=== PATIENT | female | born 1950 | race Caucasian/White ===

== ENCOUNTER 2024-01-05 18:57 | Inpatient (IN) | payer OTHER ==
[~2024-01-05] VITALS: Ht 162.6 cm; Wt 64.5 kg
[2024-01-05 20:24] VITALS: BP 157/91; PULSE 89; RESP 18; TEMP 98.1; O2SAT 96
[2024-01-05 20:49] VITALS: BP 157/91; PULSE 80; RESP 20; O2SAT 96
[2024-01-05 20:50] VITALS: PULSE 89; RESP 18; O2SAT 96
[2024-01-05] MEDS ORDERED: DOCUSATE SOD 100 MG CAP PO PRN (21:30)
[2024-01-05] MEDS ORDERED: DEXTROSE (50%) 50ML SYRG IV PRN (21:30)
[2024-01-05] MEDS ORDERED: MORPHINE SULFATE INJ 2 MG/ml SYRG IV PRN (21:30)
[2024-01-05] MEDS ORDERED: hydrALAZINE HCL 20 MG/ML VL IV PRN (21:30)
[2024-01-05] MEDS ORDERED: NITROGLYCERIN 0.4 MG SL TAB SL PRN (21:30)
[2024-01-05] MEDS ORDERED: MET50T PO (21:40)
[2024-01-05] MEDS ORDERED: METF-372 PO (21:40)
[2024-01-05] MEDS ORDERED: LISI40TA16 PO (21:40)
[2024-01-05] MEDS ORDERED: ASPI-325 PO (21:40)
[2024-01-05] MEDS ORDERED: CLOP75TA28 PO (21:40)
[2024-01-05] MEDS ORDERED: INSLANTI SC (21:40)
[2024-01-05] MEDS ORDERED: HYDR-4902 PO (21:40)
[2024-01-05] MEDS: SODIUM CHLORIDE 0.9% 1,000 ML IV SCH (21:50)
[2024-01-05] MEDS: HYDROcodone-ACET 5/325MG TAB PO PRN (22:36)
[2024-01-05] MEDS: ATORVASTATIN 20 MG TAB PO SCH (22:37)
[2024-01-05] MEDS: FAMOTIDINE (10MG/ML) 2ML VL IV SCH (22:39)
[2024-01-05] MEDS: ACCU-CHEK COMFORT CURVE STRIP VI SCH (22:42)
[2024-01-05] MEDS: InsuLIN REG 1unit/0.01ml Soln (100units/ml) SC SCH (22:42)
[2024-01-05 22:44] LABS: Basophils # (auto) 0 10 ^3/uL (0-0.2); Basophils % (auto) 0.4 % (0.0-2.0); Eosinophils # (auto) 0.2 10 ^3/uL (0-0.8); Eosinophils % (auto) 2.2 % (0.0-7.0); Hematocrit 35.9 % (36.0-46.0); Hemoglobin 12.2 g/dL (12.2-16.2); Lymphocytes # (auto) 1.9 10 ^3/uL (0.4-5.4); Lymphocytes % (auto) 22.8 % (10.0-50.0); Mean Corpuscular Hgb Conc. 33.8 g/dL (32.0-36.0); Mean Corpuscular Volume 94.5 fL (80.0-100.0); Monocytes % (auto) 11.9 % (0.0-12.0); Neutrophils # (auto) 5.2 10 ^3/uL (1.6-8.6); Neutrophils % (auto) 62.7 % (37.0-80.0); Platelet Count (auto) 252 10^3/uL (140-450); Red Cell Distribution Width 15.8 % (11.8-14.3); White Blood Cell 8.3 10^3/uL (4.4-10.8)
[2024-01-05 23:02] LABS: Alanine Aminotransferase 14 U/L (7-40); Albumin 3.7 g/dL (3.2-4.8); Alkaline Phosphatase 113 U/L (46-116); Anion Gap 6 (5-15); Aspartate Aminotransferase 12 U/L (13-40); BUN/Creatinine Ratio 10.6 (10.0-20.0); Blood Urea Nitrogen 11 mg/dL (9-23); Calcium 9.5 mg/dL (8.7-10.4); Carbon Dioxide 27 mmol/L (20-31); Chloride 107 mmol/L (98-107); Glucose 190 mg/dL (74-106); Potassium 4.1 mmol/L (3.5-5.1); Sodium 140 mmol/L (136-145)
[2024-01-05 23:03] LABS: Bilirubin, Total 0.3 mg/dL (0.2-1.0); Total Protein 6.6 g/dL (5.7-8.2)
[2024-01-06] VITALS (12 sets, daily range): BP systolic 113–155; BP diastolic 72–92; PULSE 77–93; RESP 13–18; TEMP 98–98.6; O2SAT 95–100
[2024-01-06] MEDS: InsuLIN REG 1unit/0.01ml Soln (100units/ml) SC SCH (06:27)
[2024-01-06 07:00] LABS: Urine Bacteria None Seen /hpf (None Seen)
[2024-01-06 07:10] LABS: Urine Blood 2+ /uL (Negative); Urine Budding Yeast FEW /hpf (None Seen); Urine Clarity Clear (Clear); Urine Color Light-Yellow (Yellow); Urine Protein, UAD TRACE (Negative); Urine Specific Gravity 1.013 (1.001-1.035); Urine Urobilinogen Normal (Negative); Urine WBC 33 /hpf (0 - 5); Urine pH 5.5 (5.0-9.0)
[2024-01-06 09:46] LABS: Basophils # (auto) 0 10 ^3/uL (0-0.2); Basophils % (auto) 0.6 % (0.0-2.0); Eosinophils # (auto) 0.2 10 ^3/uL (0-0.8); Eosinophils % (auto) 2.2 % (0.0-7.0); Hematocrit 37.3 % (36.0-46.0); Hemoglobin 12.6 g/dL (12.2-16.2); Lymphocytes # (auto) 2.1 10 ^3/uL (0.4-5.4); Mean Corpuscular Hemoglobin 32.2 pg (28.0-32.0); Mean Corpuscular Hgb Conc. 33.8 g/dL (32.0-36.0); Mean Corpuscular Volume 95.2 fL (80.0-100.0); Monocytes # (auto) 0.9 10 ^3/uL (0-1.3); Neutrophils # (auto) 4.2 10 ^3/uL (1.6-8.6); Neutrophils % (auto) 57.2 % (37.0-80.0); Platelet Count (auto) 269 10^3/uL (140-450); Red Blood Cells 3.92 10^6/uL (4.0-5.20); Red Cell Distribution Width 15.8 % (11.8-14.3); White Blood Cell 7.4 10^3/uL (4.4-10.8)
[2024-01-06 09:55] LABS: Alanine Aminotransferase 15 U/L (7-40); Albumin 3.7 g/dL (3.2-4.8); Alkaline Phosphatase 115 U/L (46-116); Anion Gap 8 (5-15); Aspartate Aminotransferase 15 U/L (13-40); BUN/Creatinine Ratio 12.9 (10.0-20.0); Blood Urea Nitrogen 12 mg/dL (9-23); Calcium 9.5 mg/dL (8.7-10.4); Carbon Dioxide 25 mmol/L (20-31); Chloride 107 mmol/L (98-107); Glucose 166 mg/dL (74-106); Potassium 4.3 mmol/L (3.5-5.1); Sodium 140 mmol/L (136-145)
[2024-01-06 09:58] LABS: Bilirubin, Total 0.4 mg/dL (0.2-1.0); Total Protein 6.4 g/dL (5.7-8.2)
[2024-01-06] MEDS: ASPirin 81 mg TAB PO SCH (10:00)
[2024-01-06 10:12] LABS: Magnesium 1.8 mg/dL (1.6-2.6)
[2024-01-06] MEDS: SODIUM CHLORIDE 0.9% 1,000 ML IV SCH (10:46)
[2024-01-06 11:03] LABS: INR 1.01 (0.9-1.15); Partial Thromboplastin Time 25.8 SEC (24.5-34.5); Prothrombin Time 10.7 sec (9.3-11.8)
[2024-01-06] MEDS ORDERED: IODIXANOL 320MG/ML 100ML BTL IV ONE (12:15)
[2024-01-06] MEDS: ACETAMINOPHEN 325 MG TAB PO PRN (12:20)
[2024-01-06] MEDS ORDERED: ANGIOMAX 250 MG VIAL IV ONE (12:37)
[2024-01-06] MEDS ORDERED: SODIUM CHL 0.9% 0 ML ONE (12:38)
[2024-01-06] MEDS ORDERED: HEPARIN SODIUM (PORCINE) 5000 UNITS/ML 1ML VIAL ONE (12:38)
[2024-01-06] MEDS ORDERED: fentaNYL CITRATE 100 MCG/2 ML VL ONE (12:38)
[2024-01-06] MEDS ORDERED: VERAPAMIL 2.5MG/ML INJ 2ML VIAL IV ONE (12:38)
[2024-01-06] MEDS ORDERED: MIDAZOLAM HCL 2MG/2ML 2ml VIAL (1mg/ml) ONE (12:38)
[2024-01-06] MEDS ORDERED: LIDOCAINE 2%HCL (LOCAL ANESTH.) INJ 20ML MDV ONE (12:38)
[2024-01-06] MEDS: ONDANSETRON HCL 4 MG/2 ML VIAL IV PRN (12:50)
[2024-01-06] MEDS ORDERED: ONDANSETRON HCL 4 MG/2 ML VIAL ONE (12:53)
[2024-01-06] MEDS ORDERED: hydrALAZINE HCL 20 MG/ML VL ONE (13:48)
[2024-01-06] MEDS: MORPHINE SULFATE INJ 2 MG/ml SYRG IV PRN (15:01)
[2024-01-06] MEDS: CARVEDILOL 3.125 MG TAB PO ONE (17:36)
[2024-01-06] MEDS: FUROSEMIDE 20 MG TAB PO ONE (17:38)
[2024-01-06] MEDS: CARVEDILOL 3.125 MG TAB PO SCH (19:44)
[2024-01-06] MEDS: MUPIROCIN 2% OINT 15gm or 22gm FOR MRSA NARES EACHNOSTRI SCH (22:28)
[2024-01-06] MEDS: MELATONIN 5 MG TAB PO SCH (22:33)
[2024-01-07] VITALS (7 sets, daily range): BP systolic 125–152; BP diastolic 69–98; PULSE 68–89; RESP 16–18; TEMP 97.8–98.2; O2SAT 95–100
[2024-01-07] MEDS: SACUBITRIL-VALSARTAN 24mg/26mg TAB PO SCH (09:52)
[2024-01-07] MEDS: CLOPIDOGREL BISULFATE 75 MG TAB PO SCH (09:52)
[2024-01-07] MEDS: EMPAGLIFLOZIN 10 MG TAB PO SCH (09:52)
[2024-01-08 05:00] VITALS: BP 128/88; PULSE 95; RESP 18; TEMP 97.9; O2SAT 100
[2024-01-08 06:38] LABS: Alanine Aminotransferase 12 U/L (7-40); Albumin 3.7 g/dL (3.2-4.8); Alkaline Phosphatase 110 U/L (46-116); Anion Gap 5 (5-15); Aspartate Aminotransferase 16 U/L (13-40); Bilirubin, Total 0.4 mg/dL (0.2-1.0); Blood Urea Nitrogen 18 mg/dL (9-23); Calcium 9.8 mg/dL (8.7-10.4); Carbon Dioxide 26 mmol/L (20-31); Chloride 106 mmol/L (98-107); Glucose 171 mg/dL (74-106); Potassium 4.5 mmol/L (3.5-5.1); Sodium 137 mmol/L (136-145)
[2024-01-08 06:39] LABS: Total Protein 6.7 g/dL (5.7-8.2)
[2024-01-08 08:00] VITALS: PULSE 76; PULSE 88; RESP 16; O2SAT 100
[2024-01-08] MEDS ORDERED: SACU1TAB PO (13:25)
[2024-01-08] MEDS ORDERED: CARV-214 PO (13:25)
[2024-01-08] MEDS ORDERED: EMPA1TAB PO (13:25)
[2024-01-08] MEDS ORDERED: ATOR20TA50 PO (13:25)
== END 2024-01-08 14:00 | disposition home or self-care (01) | DRG 280 ==
LOC: CENTRAL 20:24 → TELE-CENTR 01-06 01:22
PROVIDERS: ADMIT Internal Medicine; ATTEND Family Medicine
PROC: 4A023N7 Measurement of Cardiac Sampling and Pressure, Left Heart, Percutaneous Approach (ICD-10-PCS; principal; 2024-01-06)
PROC: B211YZZ Fluoroscopy of Multiple Coronary Arteries using Other Contrast (ICD-10-PCS; 2024-01-06)
PROC: B215YZZ Fluoroscopy of Left Heart using Other Contrast (ICD-10-PCS; 2024-01-06)
DX: I21.4 Non-ST elevation (NSTEMI) myocardial infarction (principal); G93.41 Metabolic encephalopathy; I50.43 Acute on chronic combined systolic (congestive) and diastolic (congestive) heart failure; I16.9 Hypertensive crisis, unspecified; I69.354 Hemiplegia and hemiparesis following cerebral infarction affecting left non-dominant side; D64.9 Anemia, unspecified; E11.9 Type 2 diabetes mellitus without complications; E78.5 Hyperlipidemia, unspecified; I11.0 Hypertensive heart disease with heart failure; I25.10 Atherosclerotic heart disease of native coronary artery without angina pectoris; I27.20 Pulmonary hypertension, unspecified; I47.9 Paroxysmal tachycardia, unspecified; I25.5 Ischemic cardiomyopathy; F03.90 Unspecified dementia, unspecified severity, without behavioral disturbance, psychotic disturbance, mood disturbance, and anxiety; Z79.82 Long term (current) use of aspirin; Z79.4 Long term (current) use of insulin; Z79.02 Long term (current) use of antithrombotics/antiplatelets; Z79.84 Long term (current) use of oral hypoglycemic drugs; Z83.3 Family history of diabetes mellitus; Z80.3 Family history of malignant neoplasm of breast
CPT/HCPCS: 36415; 71045; 80053; 80061; 81001; 82962; 83036; 83735; 83880; 84443; 84484; 85025; 85610; 85730; 86850; 86900; 86901; 87081; 87086; 93458; 99152; G0378; J1815; J2250; J2405; J3490; Q9967

== ENCOUNTER 2024-04-16 14:42 | Inpatient (IN) | payer OTHER ==
[~2024-04-16] VITALS: Ht 163.8 cm; Wt 59.1 kg
[~2024-04-16 14:42] MED LIST: AMIO200T33 PO; ASPI-325 PO; ATOR20TA50 PO; CIPR500T4 PO; CLOP75TA28 PO; DOCU-94 PO; EMPA1TAB PO; HYDR-4902 PO; HYDR50TA69 PO; INSLANTI SC; LISI40TA16 PO; MET50T PO; METF-929 PO; OXYC325T14 PO; PIO30T PO; ROSU20TA14 PO; SACU1TAB PO
--- NOTE | 2024-04-16 14:51 | ED.PDOC ---
HPI Comments 73 y.o female with PMHx of AFIB, DM, HTN, Dementia, CVA with left sided deficits, hyperlipidemia, liver disease, and skin cancer, presents to the ED for a chief complaint of chest pain associated with a productive cough, yellow phlegm, SOB, headaches, fever and body aches that started one week ago. Patient reports chest pain is localized to the left side, reproducible on palpation and has no modifying factors. Patient denies any nausea, vomiting, diarrhea, chills, leg swelling or back pain. Time Seen by MD: 14:37 Primary Care Provider: unknown Reviewed Notes: Nurses Notes, Freelance Data Entry Notes, Medications, Allergies Allergies: Coded Allergies: NO KNOWN ALLERGIES (Unverified , 01/05/24) Home Meds Active Scripts Docusate Sodium (Colace) 100 Mg Cap, 1 CAP PO BID, #30 CAP Prov:LUZ NAVA MD 03/04/24 Amiodarone Hcl (Amiodarone Hcl) 200 Mg Tab, 200 MG PO BID, #60 TAB Prov:LUZ NAVA MD 03/02/24 Sacubitril-Valsartan (Entresto 24-26 mg) 1 Tab Tab, 1 TAB PO BID for 30 Days, #60 TAB 3 Refills Prov:HETAL CASILLAS DO 01/08/24 Empagliflozin (Jardiance) 10 Mg Tab, 10 MG PO DAILY for 30 Days, #30 TAB 3 Refills Prov:HETAL CASILLAS DO 01/08/24 Atorvastatin Calcium (ATORVASTATIN CALCIUM) 20 Mg Tab, 20 MG PO HS for 30 Days, #30 TAB 3 Refills Prov:HETAL CASILLAS DO 01/08/24 Reported Medications Rosuvastatin Calcium (Crestor) 20 Mg Tab, 1 TAB PO DAILY for 90 Days, #90 02/28/24 Pioglitazone Hydrochloride (ACTOS TABLET) 30 Mg Tb, 1 TAB PO DAILY for 90 Days 02/28/24 Oxycodone W/ Acetaminophen (Apap/Oxycodone) 1 Tab Tab, 1 TAB PO Q8HR PRN for PAIN for 30 Days, #90 [5/325 MG] 02/28/24 Hydroxyzine Hcl (Hydroxyzine Hcl) 50 Mg Tab, 1 TAB PO DAILY PRN for 30 Days, #30 02/28/24 Ciprofloxacin Hcl (Ciprofloxacin Hcl) 500 Mg Tab, 1 TAB PO Q12HR for UTI for 7 Days, #14 02/28/24 Metformin HCl (Metformin Hydrochloride) 1,000 Mg Tab, 1 TAB PO BID for 90 Days, #180 02/28/24 Metoprolol Tartrate (LOPRESSOR TABLET) 50 Mg Tb, 1 TAB PO BID, #60 TAB 5 Refills 02/28/24 Clopidogrel Bisulfate (Plavix) 75 Mg Tab, 1 TAB PO DAILY, #90 TAB 1 Refill 01/05/24 Lisinopril (Lisinopril) 40 Mg Tab, 1 TAB PO DAILY 01/05/24 Metoprolol Tartrate (LOPRESSOR TABLET) 50 Mg Tb, 1 TAB PO DAILY 01/05/24 Insulin Glargine (Lantus) 100 Unit/Ml Inj, 20 UNIT SC HS 01/05/24 Hydrocodone-Acetaminophen (Hydrocodone Bitartrate/AC 5-325 mg) 1 Tab Tab, 1 TAB PO Q4HPRN PRN for PAIN SCALE 7 THRU 10, TAB 01/05/24 Aspirin (Aspirin Low Dose) 81 Mg Tab, 1 TAB PO DAILY 01/05/24 Information Source: Patient, Emergency Med Personnel Mode of Arrival: EMS Severity: Moderate Timing: Weeks (1) Duration: Since onset Location: Substernal Radiation: No Radiation Quality: Aching Onset: At Rest Cardiac Risk Factors: Hyperlipidemia, HTN, Diabetes PE Risk Factors: None History of: None Modifying Factors: Nothing Associated Signs and Symptoms: SOB Past Medical History PAST MEDICAL HISTORY: AFIB, Cancer, CVA, Dementia, DM, High Lipids, HTN, Liver Surgical History (Other): left hip replacement 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 History Family History Family History: Reviewed,noncontributory to illness Social History Smoker: Non-Smoker Alcohol: Denies ETOH Use Drugs: Denies Drug Use Lives In: Home Constitutional: reports: fever; denies: chills, diaphoresis, fatigue, malaise, sweats, weakness, others EENTM: denies: blurred vision, double vision, ear bleeding, ear discharge, ear drainage, ear pain, ear ringing, eye pain, eye redness, hearing loss, mouth pain, mouth swelling, nasal discharge, nose bleeding, nose congestion, nose pain, photophobia, tearing, throat pain, throat swelling, voice changes, others Respiratory: reports: cough, SOB at rest, shortness of breath, SOB with excertion; denies: hemoptysis, orthopnea, stridor, wheezing, others Cardiovascular: reports: chest pain; denies: dizzy spells, diaphoresis, Dyspnea on exertion, edema, irregular heart beat, left arm pain, lightheadedness, palpitations, PND, syncope, others Gastrointestinal: denies: abdomen distended, abdominal pain, blood streaked bowels, constipated, diarrhea, dysphagia, difficulty swallowing, hematemesis, melena, nausea, poor appetite, poor fluid intake, rectal bleeding, rectal pain, vomiting, others Genitourinary: denies: abnormal vagina bleeding, burning, dyspareunia, dysuria, flank pain, frequency, hematuria, incontinence, pain, , vagina discharge, urgency, others Neurological: reports: headache; denies: dizziness, fainting, left sided numbness, left sided weakness, numbness, paresthesia, pre-existing deficit, right sided numbness, right sided weakness, seizure, speech problems, tingling, tremors, weakness, others Musculoskeletal: denies: back pain, gout, joint pain, joint swelling, muscle pain, muscle stiffness, neck pain, others Integumetry: denies: bruises, change in color, change in hair/nails, dryness, laceration, lesions, lumps, rash, wounds, others Allergic/Immunocompromised: denies: Difficulty Healing, Frequent Infections, Hives, Itching, others Hematologic/Lymphatic: denies: anemia, blood clots, easy bleeding, easy bruising, swollen glands, others Endocrine: denies: excessive hunger, excessive sweating, excessive thirst, excessive urination, flushing, intolerance to cold, intolerance to heat, unexplained weight gain, unexplained weight loss, others Psychiatric: denies: anxiety, bipolar disorder, depression, hopeless, panic disorder, schizophrenia, sleepless, suicidal, others All Other Systems: Reviewed and Negative Physical Exam General Appearance: Moderate Distress HEENT: Normal ENT Inspection, Pharynx Normal, TMs Normal Neck: Full Range of Motion, Non-Tender, Normal, Normal Inspection Respiratory: Chest Non-Tender, Lungs Clear, No Accessory Muscle Use, No Respiratory Distress, Normal Breath Sounds Cardiovascular: No Edema, No JVD, No Murmur, No Gallop, Normal Peripheral Pulses, Regular Rate/Rhythm Breast Exam: Deferred Gastrointestinal: No Organomegaly, Non Tender, No Pulsatile Mass, Normal Bowel Sounds, Soft Genitalia: Deferred Pelvic: Deferred Rectal: Deferred Extremities: No calf tenderness, Normal capillary refill, Normal inspection, Normal range of motion, Non-tender, No pedal edema Musculoskeletal : Apperance: Normal Neurologic: Alert, communications lead II-XII nml as Tested, Motor Weakness, Normal Affect, Normal Mood, No Sensory Deficits Cerebellar Function: Normal Reflexes: Normal Skin: Dry, Normal Color, Warm Lymphatic: No Adenopathy EKG EKG : Pulse Rate (adult): 92 Block: RBBB Hypertrophy: LAE Was a procedure done? Was a procedure done?: No CP Differential Dx Differential Diagnosis: N/A Differential Diagnosis: Angina, Chest Wall Pain, Costochondritis, Myocardial Infarction, Pericarditis, Pneumonia, Pneumothorax, Pulmonary Embolus X-Ray, Labs, Meds, VS Vital Signs Date Time Temp Pulse Resp B/P (MAP) Pulse Ox O2 Delivery O2 Flow Rate FiO2 04/16/24 15:01 92 04/16/24 14:51 92 04/16/24 14:42 96.8 94 18 181/84 (116) 98 Lab Test 04/16/24 16:04 Range/Units White Blood Count 10.4 4.4-10.8 10^3/uL Red Blood Count 4.88 4.0-5.20 10^6/uL Hemoglobin 14.5 12.2-16.2 g/dL Hematocrit 43.6 36.0-46.0 % Mean Corpuscular Volume 89.4 80.0-100.0 fL Mean Corpuscular Hemoglobin 29.8 28.0-32.0 pg Mean Corpuscular Hemoglobin Concent 33.3 32.0-36.0 g/dL Red Cell Distribution Width 13.9 11.8-14.3 % Platelet Count 259 140-450 10^3/uL Mean Platelet Volume 7.6 6.9-10.8 fL Neutrophils (%) (Auto) 81.8 H 37.0-80.0 % Lymphocytes (%) (Auto) 12.3 10.0-50.0 % Monocytes (%) (Auto) 5.4 0.0-12.0 % Eosinophils (%) (Auto) 0.1 0.0-7.0 % Basophils (%) (Auto) 0.4 0.0-2.0 % Neutrophils # (Auto) 8.5 1.6-8.6 10 ^3/uL Lymphocytes # (Auto) 1.3 0.4-5.4 10 ^3/uL Monocytes # (Auto) 0.6 0-1.3 10 ^3/uL Eosinophils # (Auto) 0 0-0.8 10 ^3/uL Basophils # (Auto) 0 0-0.2 10 ^3/uL Nucleated Red Blood Cells 0.0 % Sodium Level 137 136-145 mmol/L Potassium Level 4.4 3.5-5.1 mmol/L Chloride Level 103 98-107 mmol/L Carbon Dioxide Level 21 20-31 mmol/L Anion Gap 13 5-15 Blood Urea Nitrogen 14 9-23 mg/dL Creatinine 0.96 0.550-1.02 mg/dL Glomerular Filtration Rate Calc 62 >90 mL/min BUN/Creatinine Ratio 14.6 10.0-20.0 Serum Glucose 324 H 74-106 mg/dL Calcium Level 10.3 8.7-10.4 mg/dL Troponin I High Sensitivity 12 </=34 ng/L B-Type Natriuretic Peptide 163.14 0-100 pg/mL Current Medications Medications (Trade) Dose Ordered Sig/Félix Route Start Time Stop Time Status Last Admin Aspirin 162 mg ONCE ONCE PO 04/16/24 14:45 04/16/24 14:49 DC 04/16/24 15:16 AP portable chest IMPRESSION: 1. No acute cardiopulmonary pathology The patient's CBC and chemistry panel are within normal limits The BNP is 163.14 The patient was given aspirin 162 mg by mouth here in the emergency department's At this time, the patient was being admitted to the hospitalist The patient understands and agrees with the management. The 1st troponin level came back and is within normal limits. Images Reviewed?: Images reviewed and evaluated by me Time of 1ST Reevaluation: 14:47 Reevaluation 1ST: Unchanged Patient Education/Counseling: Diagnosis, Treatment, Prognosis Family Education/Counseling: No Family Present Departure 1 Departure Time of Disposition: 16:54 Impression: Primary Impression: Acute chest pain Additional Impression: Acute myocardial ischemia Disposition: ADMITTED INPATIENT Admit to: [facility] Condition: Fair Critical Care Note Critical Care Time?: No Stability Stability form required: Yes Unstable for transfer: Telemetry monitoring (Telemetry monitoring required), ED Physician Assesment (Clinical assesment) Heart Score Heart Score: Heart Score Response (Comments) Value History Moderate Suspicious 1 EKG Repolarization Disturb 1 Age >65 2 Risk Factors >3 or Hx ASHD 2 Troponin Normal limit 0 Total 6 I personally scribed for TELLO ANDRADE MD (DVPASLE) on 04/16/24 at 14:51. Electronically submitted by Kandi Austin ([facility]). I personally scribed for TELLO ANDRADE MD (DVPASLE) on 04/16/24 at 16:10. Electronically submitted by Kandi Austin ([facility]). TELLO ANDRADE MD Apr 16, 2024 14:51
--- NOTE | 2024-04-16 14:51 | ECG ---
[facility] Test Date: 2024-04-16 Test Time: 14:41:17 Pat Name: IVAN CREWS Department: ER Room: [address] [place] [address] Gender: F [employer] Subcontractor: GP : 1950 Requested By: TELLO ANDRADE Order Number: [id number] Reading MD: Jonn Calixto Measurements Intervals Rescue Rate: 92 P: 34 OK: 181 QRS: -52 QRSD: 126 T: 1 QT: 392 QTc: 485 Interpretive Statements Sinus rhythm Multiform ventricular premature complexes Probable left atrial enlargement RBBB and LAFB Electronically Signed On 04-17-2024 18:26:18 PST by Jonn Calixto Please click the below link to view image of tracing.
--- NOTE | 2024-04-16 15:07 | DVH ---
AP portable chest HISTORY: cp Comparison: XY CHEST PORTABLE on DOS: 02/26/24, XY CHEST PORTABLE on DOS: 01/06/24 FINDINGS: Left ventricular configuration to the heart. Aorta is tortuous. No infiltrates or effusion s. IMPRESSION: 1. No acute cardiopulmonary pathology
[2024-04-16] MEDS: ASPirin 81 mg TAB PO ONE (15:16)
[2024-04-16 16:18] LABS: Basophils # (auto) 0 10 ^3/uL (0-0.2); Basophils % (auto) 0.4 % (0.0-2.0); Eosinophils # (auto) 0 10 ^3/uL (0-0.8); Eosinophils % (auto) 0.1 % (0.0-7.0); Hematocrit 43.6 % (36.0-46.0); Hemoglobin 14.5 g/dL (12.2-16.2); Lymphocytes # (auto) 1.3 10 ^3/uL (0.4-5.4); Lymphocytes % (auto) 12.3 % (10.0-50.0); Mean Corpuscular Hemoglobin 29.8 pg (28.0-32.0); Mean Corpuscular Hgb Conc. 33.3 g/dL (32.0-36.0); Mean Corpuscular Volume 89.4 fL (80.0-100.0); Monocytes # (auto) 0.6 10 ^3/uL (0-1.3); Monocytes % (auto) 5.4 % (0.0-12.0); Neutrophils # (auto) 8.5 10 ^3/uL (1.6-8.6); Neutrophils % (auto) 81.8 % (37.0-80.0); Platelet Count (auto) 259 10^3/uL (140-450); Red Blood Cells 4.88 10^6/uL (4.0-5.20); Red Cell Distribution Width 13.9 % (11.8-14.3); White Blood Cell 10.4 10^3/uL (4.4-10.8)
[2024-04-16 16:31] LABS: Chloride 103 mmol/L (98-107); Potassium 4.4 mmol/L (3.5-5.1); Sodium 137 mmol/L (136-145)
[2024-04-16 16:32] LABS: Anion Gap 13 (5-15); Calcium 10.3 mg/dL (8.7-10.4); Carbon Dioxide 21 mmol/L (20-31)
[2024-04-16 16:38] LABS: BUN/Creatinine Ratio 14.6 (10.0-20.0); Blood Urea Nitrogen 14 mg/dL (9-23)
[2024-04-16 16:43] LABS: Glucose 324 mg/dL (74-106)
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
--- NOTE | 2024-04-16 22:17 | DVH ---
EXAM: CT HEAD WITHOUT CONTRAST INDICATION: s/p mechanical fall TECHNIQUE: CT of the head without intravenous contrast. Radiation Dose Information: CT Dose: CTDI volume is 49.53 mGy. Dose-length product is 794.2 mGy*cm The dose indicators for CT are the volume Computed Tomography (CT) Dose Index (CTDIvol) and the Dose Length Product (DLP), and are measured in units of mGy and mGy-cm, respectively. These indicators are not patient dose, but values generated from the CT scanner acquisition factors. The report includes radiation exposure data for exposures received during this examination. COMPARISON: CT HEAD WITHOUT CONTRAST on DOS: 02/26/24 FINDINGS: There is no evidence of acute intracranial hemorrhage, extra-axial collection, mass effect, midline s hift, herniation or hydrocephalus. The ventricles, sulci and cisterns are age appropriate. The ng-white differentiation is intact. Patchy periventricular and subcortical white matter hypoattenuation is nonspecific but may be related to small vessel ischemic disease. Opacification of the right maxillary sinus and mastoid air cells are clear. The surrounding soft tissues and osseous structures are unremarkable. IMPRESSION: 1. No acute intracranial hemorrhage. 2. No CT findings of territorial ischemia. 3. No CT findings of displaced skull fracture. 4. Opacification of the right maxillary sinus.
--- NOTE | 2024-04-16 22:53 | DVH ---
Carotid Duplex Date: 04/16/2024 10:20 PM Clinical History: dizziness Comparison: US CAROTID DUPLX W COLOR DOP on DOS: 02/27/24 Technique: Duplex Doppler evaluation of the extracranial carotid and vertebral arteries including color Doppler and spectral/pulsed waveform analysis was performed. Findings: RIGHT SIDE: The peak systolic velocities are 69.1 cm/s in the distal CCA and 64.7 cm/s in the proximal ICA.The IC A/CCA ratio is less than 1. The external carotid artery is patent with peak systolic velocity of 63.6 cm/s proximally. There is appropriate antegrade flow in the right vertebral artery, 64.7 cm/s LEFT SIDE: The peak systolic velocities are 68 cm/s in the distal CCA and 93.3 cm/s in the proximal ICA.. The I CA/CCA ratio is less than 2. The external carotid artery is patent with peak systolic velocity of 75.7 cm/s proximally. There is appropriate antegrade flow in the left vertebral artery, 55.9 cm/s IMPRESSION: 1. No hemodynamically significant stenosis noted in the right carotid system. 2. No hemodynamically significant stenosis noted in the left carotid system. 3. Reference: Radiology 2003; 229:340-346
[2024-04-16] MEDS ORDERED: DEXTROSE (50%) 50ML SYRG IV PRN (23:15)
[2024-04-16] MEDS: SODIUM CHLORIDE 0.9% 1,000 ML IV SCH (23:15)
[2024-04-16 23:25] LABS: Rapid Influenza A Negative (Negative); Rapid Influenza B Negative (Negative)
[2024-04-16 23:26] LABS: COVID19 ANTIGEN SOFIA FIA NEGATIVE (NEGATIVE)
[2024-04-17 00:02] LABS: Folate (Folic Acid) 15.56 ng/mL (>5.38)
[2024-04-17] MEDS: HALOPERIDOL LACTATE 5 MG/ML INJ VIAL IM ONE (00:46)
[2024-04-17 03:00] VITALS: PULSE 85; RESP 12; O2SAT 99
[2024-04-17] MEDS ORDERED: LABETALOL HCL 20 MG/4 ML VL IV PRN (03:15)
[2024-04-17] MEDS: INSULIN LANTUS (GLARGINE) 1 /0.01ml (100units/ml) SC SCH (07:00)
[2024-04-17] MEDS: ACCU-CHEK COMFORT CURVE STRIP VI SCH (07:00)
[2024-04-17] MEDS: AMIODARONE HCL 200 MG TAB PO SCH (11:08)
[2024-04-17] MEDS: CLOPIDOGREL BISULFATE 75 MG TAB PO SCH (11:08)
[2024-04-17] MEDS: APIXABAN 5 MG TAB PO SCH (11:08)
[2024-04-17] MEDS: LISINOPRIL 20 MG TAB PO SCH (11:09)
[2024-04-17] MEDS: ASPirin-EC 81 mg tab PO SCH (11:09)
[2024-04-17] MEDS: METOPROLOL TARTRATE 50 MG TAB PO SCH (11:10)
[2024-04-17] MEDS: FAMOTIDINE 20 MG TAB PO SCH (11:10)
[2024-04-17] MEDS: InsuLIN REG 1unit/0.01ml Soln (100units/ml) SC SCH (11:30)
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
[2024-04-17] MEDS: HYDROcodone-ACET 5/325MG TAB PO SCH (18:01)
[2024-04-17] MEDS: ATORVASTATIN 20 MG TAB PO SCH (22:22)
[2024-04-17 23:22] VITALS: BP 157/73; PULSE 60; RESP 19; TEMP 97.5; O2SAT 97
[2024-04-18] VITALS (8 sets, daily range): BP systolic 104–148; BP diastolic 57–76; PULSE 61–71; RESP 17–20; TEMP 97.4–97.9; O2SAT 94–97
[2024-04-18 03:15] LABS: Urine Bacteria None Seen /hpf (None Seen)
[2024-04-18 03:46] LABS: Urine Blood 2+ /uL (Negative); Urine Clarity Clear (Clear); Urine Color Light-Yellow (Yellow); Urine Protein, UAD 1+ (Negative); Urine Specific Gravity 1.014 (1.001-1.035); Urine Squamous Epithelial Cell FEW /hpf (<5); Urine Urobilinogen Normal (Negative); Urine WBC 3 /hpf (0 - 5)
[2024-04-18 03:54] LABS: Benzodiazephine Screen, Urine Neg (NEGATIVE); Opiate Scree,Urine Pos (NEGATIVE)
[2024-04-18 03:56] LABS: Amphetamine Screen, Urine Neg (NEGATIVE); Barbiturate Scree,Urine Neg (NEGATIVE); Cannabinoid Screen, Urine Neg (NEGATIVE); Cocaine Screen, Urine Neg (NEGATIVE); Phencyclidine Screen, Urine Neg (NEGATIVE)
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
--- NOTE | 2024-04-18 12:25 | DVHINCON2 ---
Date Seen: Apr 18, 2024 Referring Physician MD Prashant Reason for Consultation Chest pain History of Present Illness This is a 73-year-old female who presented to the emergency room with a chief complaint of chest pain for two days. Describes her chest pain as substernal, nonradiating, tightness like, and associated with a productive cough with yellow sputum, SOB, BONILLA, pyrexia, and myalgia. Coughing, moving, or inspiration makes the pain worse. At time of assessment the patient denied any further chest pain. Serial troponin levels are negative. A 12 lead electrocardiogram revealed a sinus rhythm with notched P-waves and an associated right bundle branch block. Significant medical history includes congestive heart failure with improved LV function latest at 60%, paroxysmal atrial fibrillation off antiarrhythmic/NOAC therapy, hypertension, dyslipidemia, insulin-dependent diabetes mellitus, and cerebrovascular accident with left-sided hemiparesis. Past Medical History Past medical history reviewed. No other significant than mentioned above. Past Surgical History Left hip replacement Appendectomy Family History: Diabetes mellitus G8 MOTHER G8 FATHER 19 CHILD FH: breast cancer 19 CHILD Allergies: Coded Allergies: NO KNOWN ALLERGIES (Unverified , 01/05/24) Home Meds Active Scripts Docusate Sodium (Colace) 100 Mg Cap, 1 CAP PO BID, #30 CAP Prov:LUZ NAVA MD 03/04/24 Amiodarone Hcl (Amiodarone Hcl) 200 Mg Tab, 200 MG PO BID, #60 TAB Prov:LUZ NAVA MD 03/02/24 Sacubitril-Valsartan (Entresto 24-26 mg) 1 Tab Tab, 1 TAB PO BID for 30 Days, #60 TAB 3 Refills Prov:HETAL CASILLAS DO 01/08/24 Empagliflozin (Jardiance) 10 Mg Tab, 10 MG PO DAILY for 30 Days, #30 TAB 3 Refills Prov:HETAL CASILLAS DO 01/08/24 Atorvastatin Calcium (ATORVASTATIN CALCIUM) 20 Mg Tab, 20 MG PO HS for 30 Days, #30 TAB 3 Refills Prov:HETAL CASILLAS DO 01/08/24 Reported Medications Rosuvastatin Calcium (Crestor) 20 Mg Tab, 1 TAB PO DAILY for 90 Days, #90 02/28/24 Pioglitazone Hydrochloride (ACTOS TABLET) 30 Mg Tb, 1 TAB PO DAILY for 90 Days 02/28/24 Oxycodone W/ Acetaminophen (Apap/Oxycodone) 1 Tab Tab, 1 TAB PO Q8HR PRN for PAIN for 30 Days, #90 [5/325 MG] 02/28/24 Hydroxyzine Hcl (Hydroxyzine Hcl) 50 Mg Tab, 1 TAB PO DAILY PRN for 30 Days, #30 02/28/24 Ciprofloxacin Hcl (Ciprofloxacin Hcl) 500 Mg Tab, 1 TAB PO Q12HR for UTI for 7 Days, #14 02/28/24 Metformin HCl (Metformin Hydrochloride) 1,000 Mg Tab, 1 TAB PO BID for 90 Days, #180 02/28/24 Metoprolol Tartrate (LOPRESSOR TABLET) 50 Mg Tb, 1 TAB PO BID, #60 TAB 5 Refills 02/28/24 Clopidogrel Bisulfate (Plavix) 75 Mg Tab, 1 TAB PO DAILY, #90 TAB 1 Refill 01/05/24 Lisinopril (Lisinopril) 40 Mg Tab, 1 TAB PO DAILY 01/05/24 Metoprolol Tartrate (LOPRESSOR TABLET) 50 Mg Tb, 1 TAB PO DAILY 01/05/24 Insulin Glargine (Lantus) 100 Unit/Ml Inj, 20 UNIT SC HS 01/05/24 Hydrocodone-Acetaminophen (Hydrocodone Bitartrate/AC 5-325 mg) 1 Tab Tab, 1 TAB PO Q4HPRN PRN for PAIN SCALE 7 THRU 10, TAB 01/05/24 Aspirin (Aspirin Low Dose) 81 Mg Tab, 1 TAB PO DAILY 01/05/24 Current Medications Current Medications Medications (Trade) Dose Ordered Sig/Félix Route PRN Reason Start Time Stop Time Status Last Admin Atorvastatin Calcium (Lipitor) 20 mg HS PO 04/17/24 22:00 04/17/24 22:22 Acetaminophen/ Hydrocodone Bitart ([place] 5/325MG Tab) 1 tab Q4HR PO 04/17/24 18:00 04/18/24 10:00 Zolpidem Tartrate (Ambien) 10 mg HSPRN PRN PO FOR INSOMNIA 04/18/24 09:15 Vital Signs Vital Signs Date Time Temp Pulse Resp B/P (MAP) Pulse Ox O2 Delivery O2 Flow Rate FiO2 04/18/24 10:00 71 115/57 04/18/24 09:25 97.6 17 94 97.6 04/18/24 08:00 Room Air* 0 21 Labs/Diagnostic Data Labs Test 04/18/24 03:00 04/16/24 23:09 04/16/24 22:00 04/16/24 21:15 Range/Units Urine Color Light-yellow Yellow Urine Clarity Clear Clear Urine pH 5.0 5.0-9.0 Urine Specific [place] 1.014 1.001-1.035 Urine Protein 1+ H Negative Urine Ketones Negative Negative Urine Blood 2+ H Negative /uL Urine Nitrite Negative Negative Urine Bilirubin Negative Negative Urine Urobilinogen Normal Negative mg/dL Urine Leukocyte Esterase Negative Negative /uL Urine RBC 14 0 - 4 /hpf Urine WBC 3 0 - 5 /hpf Urine Squamous Epithelial Cells Few <5 /hpf Urine Bacteria None seen None Seen /hpf Urine Glucose 3+ H Normal mg/dL Urine Opiates Screen Pos NEGATIVE Urine Fentanyl Screen Neg NEGATIVE Urine Barbiturates Screen Neg NEGATIVE Urine Phencyclidine Screen Neg NEGATIVE Urine Amphetamines Screen Neg NEGATIVE Urine Benzodiazepines Screen Neg NEGATIVE Urine Cocaine Screen Neg NEGATIVE Urine Cannabinoids Screen Neg NEGATIVE Troponin I High Sensitivity 16 </=34 ng/L Influenza Type A Antigen Negative Negative Influenza Type B Antigen Negative Negative SARS-CoV-2 Antigen (Rapid) Negative NEGATIVE Vitamin B12 Level 918 H 211-911 pg/mL Folic Acid 15.56 >5.38 ng/mL Test 04/16/24 17:15 04/16/24 16:04 Range/Units Thyroid Stimulating Hormone (TSH) 0.77 0.55-4.78 uIU/mL White Blood Count 10.4 4.4-10.8 10^3/uL Red Blood Count 4.88 4.0-5.20 10^6/uL Hemoglobin 14.5 12.2-16.2 g/dL Hematocrit 43.6 36.0-46.0 % Mean Corpuscular Volume 89.4 80.0-100.0 fL Mean Corpuscular Hemoglobin 29.8 28.0-32.0 pg Mean Corpuscular Hemoglobin Concent 33.3 32.0-36.0 g/dL Red Cell Distribution Width 13.9 11.8-14.3 % Platelet Count 259 140-450 10^3/uL Mean Platelet Volume 7.6 6.9-10.8 fL Neutrophils (%) (Auto) 81.8 H 37.0-80.0 % Lymphocytes (%) (Auto) 12.3 10.0-50.0 % Monocytes (%) (Auto) 5.4 0.0-12.0 % Eosinophils (%) (Auto) 0.1 0.0-7.0 % Basophils (%) (Auto) 0.4 0.0-2.0 % Neutrophils # (Auto) 8.5 1.6-8.6 10 ^3/uL Lymphocytes # (Auto) 1.3 0.4-5.4 10 ^3/uL Monocytes # (Auto) 0.6 0-1.3 10 ^3/uL Eosinophils # (Auto) 0 0-0.8 10 ^3/uL Basophils # (Auto) 0 0-0.2 10 ^3/uL Nucleated Red Blood Cells 0.0 % Sodium Level 137 136-145 mmol/L Potassium Level 4.4 3.5-5.1 mmol/L Chloride Level 103 98-107 mmol/L Carbon Dioxide Level 21 20-31 mmol/L Anion Gap 13 5-15 Blood Urea Nitrogen 14 9-23 mg/dL Creatinine 0.96 0.550-1.02 mg/dL Glomerular Filtration Rate Calc 62 >90 mL/min BUN/Creatinine Ratio 14.6 10.0-20.0 Serum Glucose 324 H 74-106 mg/dL Hemoglobin A1c 10.7 H <5.7 % A1C Calcium Level 10.3 8.7-10.4 mg/dL B-Type Natriuretic Peptide 163.14 0-100 pg/mL Assessment Noncardiac chest pain Paroxysmal atrial fibrillation, off antiarrhythmic/NOAC therapy, possibly transient Hx of heart failure with recovered ejection fraction at 60% Hypertension Dyslipidemia HX of CVA with left-sided hemiparesis Insulin-dependent diabetes mellitus Plan/Recommendation (Dr. Estrada) The patient presents with noncardiac/pleuritic chest pain, a twelve-lead electrocardiogram with no evidence of acute ischemia, and negative serial troponin levels. She also underwent a recent cardiac catheterization and coronary angiogram with no catheter based intervention given mild-moderate coronary artery disease on 01/07/24. Recent echocardiogram revealed LVEF of 60%. She was strongly advised to follow-up with a primary precision assembler bench within 2-3 weeks post discharge. There is no further cardiac work-up indicated at this time. Please call if in need to re-consult. Thank you for allowing us to participate in this patient's care. This medical document was created using an electronic medical record system with voice recognition software and computerized dictation system. Although this document has been carefully reviewed, there might still be some phonetic and typographical errors. Occasional wrong-word or ``sound-alike substitutions may have occurred due to the inherent limitations of voice recognition software. These areas are purely typographical due to imperfections of the software programs and do not reflect any compromise in the patient's medical care. Please read the chart carefully and recognize, using context, where these substitutions have occurred. Plan discussed with: Patient, Other NYHA Physical activity limitations: NA Date of Service: Apr 18, 2024 Billing Provider: AASHISH ESTRADA MD Cardiology Common Codes: [id number] INP/OBS CARE (High) CYNDIE CAMPOS MEDICATION AID Apr 18, 2024 12:25
[2024-04-19] MEDS: ZOLPIDEM TARTRATE 5 MG TAB PO PRN (00:55)
[2024-04-19 01:00] VITALS: BP 103/69; PULSE 60; RESP 20; TEMP 98.1; O2SAT 92
[2024-04-19] MEDS: ONDANSETRON HCL 4 MG/2 ML VIAL IV PRN (04:23)
[2024-04-19 05:00] VITALS: BP 121/59; PULSE 62; RESP 20; TEMP 98; O2SAT 94
[2024-04-19 08:00] VITALS: RESP 18; O2SAT 95
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
--- NOTE | 2024-04-19 08:07 | DVHDS2 ---
Discharge Summary Date of Admission Apr 16, 2024 at 21:26 Date of Discharge: Apr 19, 2024 Admitting Diagnosis Chest pain Wounds: None Labs/Diagnostic Data: Laboratory Results Test 04/19/24 06:07 04/18/24 03:00 04/16/24 23:09 04/16/24 22:00 POC Glucose 162 mg/dl (70-106) Urine Color Light-yellow (Yellow) Urine Clarity Clear (Clear) Urine pH 5.0 (5.0-9.0) Urine Specific [place] 1.014 (1.001-1.035) Urine Protein 1+ (Negative) Urine Ketones Negative (Negative) Urine Blood 2+ /uL (Negative) Urine Nitrite Negative (Negative) Urine Bilirubin Negative (Negative) Urine Urobilinogen Normal mg/dL (Negative) Urine Leukocyte Esterase Negative /uL (Negative) Urine RBC 14 /hpf (0 - 4) Urine WBC 3 /hpf (0 - 5) Urine Squamous Epithelial Cells Few /hpf (<5) Urine Bacteria None seen /hpf (None Seen) Urine Glucose 3+ mg/dL (Normal) Urine Opiates Screen Pos (NEGATIVE) Urine Fentanyl Screen Neg (NEGATIVE) Urine Barbiturates Screen Neg (NEGATIVE) Urine Phencyclidine Screen Neg (NEGATIVE) Urine Amphetamines Screen Neg (NEGATIVE) Urine Benzodiazepines Screen Neg (NEGATIVE) Urine Cocaine Screen Neg (NEGATIVE) Urine Cannabinoids Screen Neg (NEGATIVE) Troponin I High Sensitivity 16 ng/L (</=34) Influenza Type A Antigen Negative (Negative) Influenza Type B Antigen Negative (Negative) SARS-CoV-2 Antigen (Rapid) Negative (NEGATIVE) Test 04/16/24 21:15 04/16/24 17:15 04/16/24 16:04 Vitamin B12 Level 918 pg/mL (211-911) Folic Acid 15.56 ng/mL (>5.38) Thyroid Stimulating Hormone (TSH) 0.77 uIU/mL (0.55-4.78) White Blood Count 10.4 10^3/uL (4.4-10.8) Red Blood Count 4.88 10^6/uL (4.0-5.20) Hemoglobin 14.5 g/dL (12.2-16.2) Hematocrit 43.6 % (36.0-46.0) Mean Corpuscular Volume 89.4 fL (80.0-100.0) Mean Corpuscular Hemoglobin 29.8 pg (28.0-32.0) Mean Corpuscular Hemoglobin Concent 33.3 g/dL (32.0-36.0) Red Cell Distribution Width 13.9 % (11.8-14.3) Platelet Count 259 10^3/uL (140-450) Mean Platelet Volume 7.6 fL (6.9-10.8) Neutrophils (%) (Auto) 81.8 % (37.0-80.0) Lymphocytes (%) (Auto) 12.3 % (10.0-50.0) Monocytes (%) (Auto) 5.4 % (0.0-12.0) Eosinophils (%) (Auto) 0.1 % (0.0-7.0) Basophils (%) (Auto) 0.4 % (0.0-2.0) Neutrophils # (Auto) 8.5 10 ^3/uL (1.6-8.6) Lymphocytes # (Auto) 1.3 10 ^3/uL (0.4-5.4) Monocytes # (Auto) 0.6 10 ^3/uL (0-1.3) Eosinophils # (Auto) 0 10 ^3/uL (0-0.8) Basophils # (Auto) 0 10 ^3/uL (0-0.2) Nucleated Red Blood Cells 0.0 % Sodium Level 137 mmol/L (136-145) Potassium Level 4.4 mmol/L (3.5-5.1) Chloride Level 103 mmol/L (98-107) Carbon Dioxide Level 21 mmol/L (20-31) Anion Gap 13 (5-15) Blood Urea Nitrogen 14 mg/dL (9-23) Creatinine 0.96 mg/dL (0.550-1.02) Glomerular Filtration Rate Calc 62 mL/min (>90) BUN/Creatinine Ratio 14.6 (10.0-20.0) Serum Glucose 324 mg/dL (74-106) Hemoglobin A1c 10.7 % A1C (<5.7) Calcium Level 10.3 mg/dL (8.7-10.4) B-Type Natriuretic Peptide 163.14 pg/mL (0-100) Other Laboratory Tests 04/16/24 16:04 Brief Hx & Hospital Course: 73-year-old female with a history of coronary artery disease status post left heart catheterization 01-07-24 with a normal coronaries and no coronary intervention history of hypertension AFib CVA with left-sided weakness type 2 diabetes liver disease hypercholesterolemia dementia came in for recurrent falls and chest pain troponin negative x3 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 At the time of discharge patient is alert awake with stable vital signs being discharged to [facility] per Physical therapy recommendation. Consults/Reason for consult Cardiology Operations or Procedures None Condition at Discharge: Fair Final Diagnosis/Problems List Acute chest pain coronary artery disease ruled out Troponin negative x3 Treatment per ACS protocol, consult for Dr. Mitchell appreciated, echo 60 percent ejection fraction, left heart catheterization 01/07/2024 neg Acute Dizziness Hypertensive emergency Paroxysmal AFib History of CVA with left-sided weakness Type 2 diabetes : Insulin sliding scale Liver disease Hypercholesterolemia Dementia Recurrent falls Flu test negative COVID test negative CT head negative Carotid ultrasound negative [facility]position[facility] Discharge Instruct/Medications Diet: Cardiac 2g Na,low cholest Activity: Light activity Follow Up/Referral: Follow up with the skilled nursing Medications: see list 39 (Time taken for discharge summary 39 minutes) Discharge Statement: "Patient was advised to return to the ER or call 911 if any headaches, dizziness, shortness of breath, chest pain, abdominal pain, bleeding, fevers, or worsening of medical condition. Patient was counseled about treatment plan, medications, possible side effects, patientverbalized understanding. All questions were answered to the best of my ability. This discharge took greater then 30 minutes in planning, reviewing documentation, counseling the patient, and discussing with other team members." ASSESSMENT ASSESSMENT Hospital Course Improved Assessment Acute chest pain coronary artery disease ruled out Troponin negative x3 Treatment per ACS protocol, consult for Dr. Mitchell appreciated, echo 60 percent ejection fraction, left heart catheterization 01/07/2024 neg Acute Dizziness Hypertensive emergency Paroxysmal AFib History of CVA with left-sided weakness Type 2 diabetes : Insulin sliding scale Liver disease Hypercholesterolemia Dementia Recurrent falls Flu test negative COVID test negative CT head negative Carotid ultrasound negative Date of Service: Apr 19, 2024 Billing Provider: LUZ NAVA MD Common Visit Codes: [id number] DISCH DAY >30min LUZ NAVA MD Apr 19, 2024 08:07
[2024-04-19 10:42] VITALS: BP 114/63; PULSE 60
[2024-04-19] MEDS: ALPRAZolam 0.5 MG TAB PO ONE (13:50)
== END 2024-04-19 14:00 | DRG 74 ==
LOC: EDBD 14:42 → ER 14:42 → OVERFLOW 21:26 → CENTRAL 04-17 21:44
PROVIDERS: ADMIT Family Medicine; ATTEND Family Medicine
DX: G90.89 Other disorders of autonomic nervous system (principal); I16.1 Hypertensive emergency; I69.354 Hemiplegia and hemiparesis following cerebral infarction affecting left non-dominant side; I50.32 Chronic diastolic (congestive) heart failure; D68.59 Other primary thrombophilia; I48.0 Paroxysmal atrial fibrillation; E78.00 Pure hypercholesterolemia, unspecified; E11.9 Type 2 diabetes mellitus without complications; K76.9 Liver disease, unspecified; R29.6 Repeated falls; Z20.822 Contact with and (suspected) exposure to COVID-19; I11.0 Hypertensive heart disease with heart failure; Z96.642 Presence of left artificial hip joint; I45.10 Unspecified right bundle-branch block; Z83.3 Family history of diabetes mellitus; Z80.3 Family history of malignant neoplasm of breast; Z79.4 Long term (current) use of insulin
CPT/HCPCS: 36415; 70450; 71045; 80048; 80307; 81001; 82607; 82746; 82962; 83036; 83880; 84443; 84484; 85025; 87081; 87426; 87804; 93005; 93886; 97163; G0378; J1815; J2405